=== PATIENT | female | born 1990 | race Caucasian/White ===

== ENCOUNTER 2016-06-22 14:21 | Emergency (ER) | payer MEDICAID ==
[~2016-06-22] VITALS: Ht 157.5 cm; Wt 56.7 kg
[2016-06-22 14:25] VITALS: BP 125/65; PULSE 83; RESP 18; TEMP 98.3; O2SAT 97
--- NOTE | 2016-06-22 14:25 | NUR ---
Patient triaged and placed in waiting room. VSS and patient appears in no acute distress at this time. Accompanied by SELF, awaiting available bed, and MD notified of need for MSE.
--- NOTE | 2016-06-22 14:32 | NUR ---
DR WOO EVALUATING PT IN TRIAGE ROOM
[2016-06-22 15:05] LABS: BILIRUBIN,URINE NEGATIVE (NEGATIVE); BLOOD, URINE NEGATIVE (NEGATIVE); CLARITY/URINE CLEAR (CLEAR); COLOR,URINE YELLOW (YELLOW); GLUCOSE,URINE NEGATIVE (NEGATIVE); KETONES,URINE NEGATIVE (NEGATIVE); LEUKOCYTE ESTERASE ,URINE TRACE (NEGATIVE); NITRITE, URINE NEGATIVE (NEGATIVE); PH,URINE 7.5 (5.0-8.0); PROTEIN URINE NEGATIVE (NEGATIVE)
[2016-06-22 15:45] LABS: BACTERIA,URINE FEW /HPF (None Seen); RBC,URINE 0-3 /HPF (0-3)
--- NOTE | 2016-06-22 15:45 | NUR ---
Patient given written and verbal discharge instructions and verbalizes understanding. ER MD discussed with patient the results and treatment provided. Given copies of tests performed in ER. Patient in stable condition. ID arm band removed. Rx of Cipro, Pyridium, Motrin given. Patient educated on pain management and to follow up with PMD. Pain Scale 0/10. Opportunity for questions provided and answered.
== END 2016-06-22 15:45 | disposition home or self-care (01) ==
LOC: SED 14:21
DX: N39.0 Urinary tract infection, site not specified (principal)
CPT/HCPCS: 81000-TC; 81025; 87086; 99284

== ENCOUNTER 2016-11-12 21:37 | Emergency (ER) | payer MEDICAID ==
[~2016-11-12] VITALS: Ht 157.5 cm; Wt 54.4 kg
[2016-11-12 21:48] VITALS: BP_SYST 122
[2016-11-12] MEDS: FIORCET PO ONE (23:31)
[2016-11-12] MEDS: IBUPROFEN 800 MG TABLET PO ONE (23:32)
[2016-11-13 00:15] VITALS: BP_SYST 119
== END 2016-11-13 00:15 | disposition home or self-care (01) ==
LOC: SED 21:37
DX: G44.209 Tension-type headache, unspecified, not intractable (principal); G43.909 Migraine, unspecified, not intractable, without status migrainosus
CPT/HCPCS: 99283

== ENCOUNTER 2016-12-14 08:42 | Emergency (ER) | payer MEDICAID ==
[~2016-12-14] VITALS: Ht 157.5 cm; Wt 54.4 kg
[2016-12-14 08:42] VITALS: BP_SYST 118
--- NOTE | 2016-12-14 08:45 | NUR ---
Patient triaged and placed in waiting room. VSS and patient appears in no acute distress at this time. Accompanied by SELF, awaiting available bed, and MD notified of need for MSE.
--- NOTE | 2016-12-14 09:20 | NUR ---
BROUGHT BACK TO BED #7 AND TRIAGED. REPORT GIVEN TO MAYE
--- NOTE | 2016-12-14 10:25 | NUR ---
MD Kidd at bedside.
[2016-12-14 10:30] VITALS: BP_SYST 118
--- NOTE | 2016-12-14 10:38 | NUR ---
Patient given written and verbal discharge instructions and verbalizes understanding. ER MD discussed with patient the results and treatment provided. Patient in stable condition. ID arm band removed. Patient educated on pain management and to follow up with PMD. Pain Scale [0]. Opportunity for questions provided and answered.
== END 2016-12-14 10:40 | disposition home or self-care (01) ==
LOC: SED 08:42
DX: Z00.00 Encounter for general adult medical examination without abnormal findings (principal); H57.8 Other specified disorders of eye and adnexa; G43.909 Migraine, unspecified, not intractable, without status migrainosus
CPT/HCPCS: 99281

== ENCOUNTER 2018-10-14 15:41 | Emergency (ER) | payer MEDICAID ==
[~2018-10-14] VITALS: Ht 160 cm; Wt 56.7 kg
[2018-10-14 15:45] VITALS: BP_SYST 120
[2018-10-14 16:54] VITALS: BP_SYST 120
== END 2018-10-14 16:50 | disposition home or self-care (01) ==
LOC: SED 15:41
DX: J45.909 Unspecified asthma, uncomplicated (principal); G43.909 Migraine, unspecified, not intractable, without status migrainosus; R03.0 Elevated blood-pressure reading, without diagnosis of hypertension
CPT/HCPCS: 71045; 93005; 99283